=== PATIENT | male | born 2005 | race Caucasian/White ===

== ENCOUNTER 2024-02-14 01:42 | Emergency (ER) | payer OTHER, SELFPAY ==
[2024-02-14 01:46] VITALS: BP 147/81; PULSE 97; RESP 16; TEMP 36.8; O2SAT 99; BMI 32.0
[2024-02-14 02:11] LABS: Mucous, Urine 0 SEEN /hpf (<or=2+); Squamous Epithelial Cells - UA 0 SEEN /hpf (0-5)
[2024-02-14 02:12] LABS: Color, Urine Red (Yellow); Glucose, Dipstick Normal (Normal); Ketone-Dipstick Negative (Negative); Leukocyte Esterase-Dipstick 100 /ul (Negative); Nitrite-Dipstick Negative (Negative); Occult Blood-Urine 250 /ul (Negative); Protein-Dipstick 500 mg/dl (Negative); Specific Gravity, Urine 1.015 (1.002-1.030); Urine Bilirubin Dipstick Negative (Negative); Urine Clarity Cloudy (Clear); Urine Urobilinogen Normal (Normal)
[2024-02-14 02:19] LABS: Bacteria RARE /hpf (None Seen); Red Blood Cells-Urine > 100 SEEN /hpf (0-5); White Blood Cells 25-50 SEEN /hpf (0-5)
--- NOTE | 2024-02-14 02:43 | CT_ITS ---
EXAM: CT ABDOMEN AND PELVIS WITHOUT INTRAVENOUS CONTRAST CLINICAL INDICATION: flank pain TECHNIQUE: Helically acquired images were obtained of the abdomen and pelvis without intravenous contrast. This CT exam was performed using one or more of the following dose reduction techniques: automated exposure control, adjustment of the mA and/or kV according to patient size, and/or use of iterative reconstruction technique. RADIATION DOSE: Total DLP: 833.69 mGy-cm. COMPARISON: No relevant prior studies available. FINDINGS: LOWER THORAX: Visualized lung bases are clear. No coronary artery calcification. No significant pericardial effusion. ABDOMEN: LIVER: Unremarkable. Homogeneous. GALLBLADDER AND BILE DUCTS: Unremarkable. No calcified gallstones. No gallbladder distention or wall edema. No intra- or extrahepatic biliary ductal dilation. PANCREAS: Unremarkable. No focal cystic mass. SPLEEN: Unremarkable. Normal size without focal cystic or solid mass. ADRENALS: Unremarkable. No nodules. KIDNEYS AND URETERS: Unremarkable. Normal renal size and position. No renal or obstructing ureteral stones. No hydronephrosis or perirenal stranding. STOMACH AND BOWEL: Unremarkable. No stomach or bowel distention. No focal inflammatory change. PELVIS: APPENDIX: Normal. No evidence of acute appendicitis. BLADDER: Unremarkable. No bladder wall thickening. REPRODUCTIVE: The testicles are present within the inguinal canals. Prostate gland is not enlarged. ABDOMEN and PELVIS: INTRAPERITONEAL SPACE: Unremarkable. No ascites or other fluid collection. No free air. BONES/JOINTS: Unremarkable. No suspicious lytic or blastic abnormality. No acute osseous abnormality. SOFT TISSUES: Unremarkable. No discrete abdominal or pelvic wall hernia. VASCULATURE: Normal caliber abdominal aorta. LYMPH NODES: Numerous normal to upper normal-sized lymph nodes are clustered in the pericecal region. Additional small/normal size lymph nodes are scattered within the small bowel mesentery. A few normal size aortocaval nodes are present. No para-aortic adenopathy. CT/Abdomen/Pelvis without Cont IMPRESSION: 1. Numerous small pericecal and mesenteric lymph nodes, consistent with mesenteric adenitis. 2. Normal appendix. 3. No renal abnormality; no renal calculi or hydronephrosis. Electronically Signed: Christiano Feliz MD at 3:26 EDT ,
[2024-02-14 02:53] VITALS: BP 127/85; PULSE 100; RESP 16; TEMP 36.8; O2SAT 100
[2024-02-14 03:02] VITALS: BP 125/82; PULSE 101; RESP 16; TEMP 36.7; O2SAT 100
--- NOTE | 2024-02-14 03:52 | EDS_ITS ---
HPI History of Present Illness Chief Complaint: Complaint Informant: patient and family Narrative Narrative: Patient is a 18-year-old female who has transition from male to female. She is currently on hormone replacement therapy. She states that she is been on the medication for over a year and the last dose increase was over 3 months ago. She reports that this evening she had sensation to urinate and when she did there is a sharp or stabbing pain and then she noticed passage of blood and clots. She denies any trauma any history of bleeding disorder or blood thinner use. She states that symptoms have improved since her onset a few hours ago but as this is never happened before she presents for evaluation. She denies any genital discharge or concern for STD. She also states there was no recent genital trauma PFSH PFS Medical History Transgender Home Medications ?Medication ?Instructions ?Recorded ?Last Taken ?Type estradiol 2 mg tablet 3 mg PO BID 02/14/24 Unknown History finasteride 5 mg tablet 2.5 mg PO DAILY 02/14/24 Unknown History loratadine 10 mg tablet 10 mg PO DAILY 02/14/24 Unknown History (Allerclear) spironolactone 100 mg tablet 100 mg PO BID 02/14/24 Unknown History Allergy/AdvReac Type Severity Reaction Status Date / Time cat dander (cats) Allergy Intermediate Itching Verified 02/14/24 01:54 Surgical History no surgical history Social History Smoking Status: Never smoker [facility] ED Constitutional Constitutional ED: Denies chills or fever(s) ENT ENT ED: Denies sore throat Cardiovascular Cardiovascular: Denies chest pain Respiratory/Chest Respiratory/Chest: Denies cough or dyspnea Gastrointestinal Gastrointestinal: Denies abdominal pain, diarrhea, nausea or vomiting Genitourinary Genitourinary ED: Reports dysuria and hematuria; Denies urinary frequency Musculoskeletal Musculoskeletal: Denies back pain or myalgias Integumentary Denies rash Neurologic Neurologic: Denies headache(s) Hematologic/Lymphatic Hematologic/Lymphatic: Denies easy bleeding or easy bruising EXAM Physical Exam Const Vital Signs: 02/14/24 01:46 02/14/24 02:53 02/14/24 03:02 Temperature 98.3 F 98.3 F 98.0 F Temperature Source Oral Temporal Temporal Pulse Rate 97 100 101 H Respiratory Rate 16 16 16 Blood Pressure 147/81 H 127/85 H 125/82 H Blood Pressure Mean 103 99 96 Pulse Ox 99 100 100 Oxygen Delivery Method Room Air Room Air Room Air 02/14/24 04:00 02/14/24 04:00 Temperature 98.7 F 98.7 F Temperature Source Oral Pulse Rate 95 95 Respiratory Rate 16 16 Blood Pressure 121/78 H 121/78 H Blood Pressure Mean 92 92 Pulse Ox 99 98 Oxygen Delivery Method Positive well nourished and well developed General Appearance ED: well developed; Negative for pallor HEENT HEENT Narrative: Normocephalic atraumatic Eyes PERRL and EOMs intact bilaterally General Eye ED: Negative for pale conjunctiva or scleral icterus Neck supple Resp normal respiratory effort and clear to auscultation bilaterally Cardio regular rate and regular rhythm GI normal to inspection, nondistended, normoactive bowel sounds, non-tender, non- distended and no masses GI Narrative: No organomegaly to suggest urinary retention no pain with palpation in the suprapubic region Auscultation: normoactive bowel sounds Palpation: soft Narrative: Patient deferred Back/Spine no CVA tenderness Extremity normal to inspection Neuro oriented x3, CN's II-XII intact bilaterally and no sensory deficits noted Sensorium / Orientation: alert Motor Exam: strength 5/5 throughout Psych mental status grossly normal Skin no rashes or lesions noted, no wounds and skin turgor normal General Skin Exam: Negative for jaundice or pallor MDM MDM MDM Narrative Medical decision making narrative: Patient presented to the ER slightly hypertensive otherwise with stable vitals. She reported a sudden onset of sharp pain followed by passage of blood and clots. Differential diagnosis is for UTI versus kidney stone versus prostatitis versus bladder mass. Patient's urine sample was obtained which shows red blood cells with no obvious sign of infection. The patient did report mild dysuria urine will be sent for culture but do not feel the need to start antibiotic with only rare bacteria noted on urine sample. With concern this could be potential kidney stone or bladder mass a CT scan without contrast was obtained. This revealed no obvious findings. On reevaluation patient reports that she has still been able to urinate and there is no signs of retention and that bleeding seems to be slightly improving. Therefore at this time patient will be discharged and follow-up with urology on an outpatient basis as vitals are stable and urine and CT scan show no obvious reason for the hematuria. However as she is still able to urinate and does not require Lopez catheter I do not feel the need for emergent urology consultation History & Record Review Discussion w/independent historian: Patient Lab Data Attestation: I reviewed the patient's lab results. Labs: Laboratory Results - last 24 hr 02/14/24 02:00 Urine Color Red Urine Clarity Cloudy Urine pH 5.0 Ur Specific [place] 1.015 Urine Protein 500 H Urine Glucose (UA) Normal Urine Ketones Negative Urine Occult Blood 250 H Urine Nitrite Negative Urine Bilirubin Negative Urine Urobilinogen Normal Ur Leukocyte Esterase 100 H Urine RBC > 100 SEEN Urine WBC 25-50 SEEN Ur Squamous Epith Cells 0 SEEN Urine Bacteria RARE Urine Mucus 0 SEEN Radiography Diagnostic Testing: Clinical Impression(s) from Imaging Studies Abdomen/Pelvis CT 02/14/24 02:43 IMPRESSION: 1. Numerous small pericecal and mesenteric lymph nodes, consistent with mesenteric adenitis. 2. Normal appendix. 3. No renal abnormality; no renal calculi or hydronephrosis. Electronically Signed: Christiano Feliz MD at 3:26 EDT , Discharge Plan Triage Chief Complaint: Complaint ED Provider: Tyrese Lomeli Dx/Rx/DC Orders Clinical Impression: Hematuria Instructions: ED Hematuria Prescriptions: No Action spironolactone 100 mg tablet 100 mg PO BID estradiol 2 mg tablet 3 mg PO BID finasteride 5 mg tablet 2.5 mg PO DAILY loratadine [Allerclear] 10 mg tablet 10 mg PO DAILY Primary Care Provider: Care Physician,No Primary Referrals: Syd Trevino MD [Med Staff - Active Staff] - Care Physician,No Primary [Primary Care Provider] - Activity Restrictions/Additional Instructions: If symptoms persist please follow-up with urology for repeat evaluation but if you develop a fever or severe pain or have increased bleeding or any further concerns please return to the ER Print Language: Portuguese Disposition Disposition: Home, Self Care Discharge Date/Time: 02/14/24 04:07
[2024-02-14 04:00] VITALS: BP 121/78; PULSE 95; RESP 16; TEMP 37.1; O2SAT 98; O2SAT 99
== END 2024-02-14 04:07 | disposition home or self-care (01) ==
PROVIDERS: Emergency Provider Emergency Medicine; Visit Provider Emergency Medicine
DX: R31.9 Hematuria, unspecified (principal); Z79.890 Hormone replacement therapy; F64.0 Transsexualism; Z79.899 Other long term (current) drug therapy; R30.0 Dysuria
CPT/HCPCS: 74176; 81001; 87086; 87088; 87186; 99282